=== PATIENT | female | born 2000 | race Caucasian/White ===

== ENCOUNTER → 2018-06-17 | Outpatient (REF) | payer BC ==
[2018-06-17 19:49] LABS: CHLAMYDIA DNA AMPLIFICATION NEGATIVE (NEGATIVE); GC DNA AMPLIFICATION NEGATIVE (NEGATIVE)
== END ==
LOC: M LAB REF 17:16
PROVIDERS: ATTEND Obstetrics & Gynecology
DX: Z11.3 Encounter for screening for infections with a predominantly sexual mode of transmission (principal)

== ENCOUNTER 2021-10-16 13:33 | Emergency (ER) | payer BC ==
[~2021-10-16] VITALS: Ht 170.2 cm; Wt 97.7 kg
[2021-10-16] MEDS ORDERED: OSEL75CA2 (13:48)
[2021-10-16] MEDS ORDERED: NS 1,000 ML IV ONE (14:35)
[2021-10-16] MEDS ORDERED: ONDANSETRON 4MG/2ML VIAL IV ONE (14:35)
[2021-10-16 15:02] LABS: BASO % 0.6 % (0.0-1.0); EOS % 0.6 % (0.0-3.0); HEMATOCRIT 36.8 % (36.0-47.0); HEMOGLOBIN 12.7 g/dl (12.0-15.5); LYMPH # 1.5 10^3/uL (1.5-5.0); MEAN CORPUSCULAR HEMOGLOBIN 28.5 pg (27.0-33.0); MEAN CORPUSCULAR HGB CONC 34.5 g/dl (32.0-36.5); MEAN CORPUSCULAR VOLUME 82.7 fl (80.0-96.0); MONO # 0.5 10^3/uL (0.0-0.8); NEUTROPHILS # 2.9 10^3/uL (1.5-8.5); NEUTROPHILS % 58.6 % (36.0-66.0); PLATELET COUNT, AUTOMATED 302 10^3/uL (150-450); RED BLOOD COUNT 4.45 10^6/uL (4.00-5.40)
[2021-10-16 16:17] LABS: BLOOD UREA NITROGEN 12 MG/DL (7-18); CREATININE FOR GFR 0.66 MG/DL (0.55-1.30); GLOMERULAR FILTRATION RATE > 60.0 (>60); GLUCOSE, FASTING 101 MG/DL (70-100); POTASSIUM SERUM 3.5 MEQ/L (3.5-5.1); SODIUM LEVEL 139 MEQ/L (136-145)
[2021-10-16 16:18] LABS: ALBUMIN 3.4 GM/DL (3.2-5.2); ALT/SGPT 19 U/L (12-78); BILIRUBIN,DIRECT 0.1 MG/DL (0.0-0.2); BILIRUBIN,TOTAL 0.3 MG/DL (0.2-1.0); CALCIUM LEVEL 9.1 MG/DL (8.5-10.1); CARBON DIOXIDE LEVEL 27 MEQ/L (21-32); CHLORIDE LEVEL 106 MEQ/L (98-107); HCG, SERUM QUANTITATIVE 129789 MIU/ML; LIPASE 77 U/L (73-393); TOTAL PROTEIN 7.2 GM/DL (6.4-8.2)
[2021-10-16 16:59] VITALS: BP 130/66
[2021-10-16] MEDS ORDERED: ONDA4TAB6 PO (17:42)
== END 2021-10-16 18:43 | disposition home or self-care (01) ==
LOC: M ED 13:33
DX: O21.9 Vomiting of pregnancy, unspecified (principal); E28.2 Polycystic ovarian syndrome; Z88.1 Allergy status to other antibiotic agents; Z3A.08 8 weeks gestation of pregnancy
CPT/HCPCS: 36415; 80048; 80076; 83690; 84702; 85025; 96361; 96374; 99284; J2405

== ENCOUNTER → 2021-10-26 | Outpatient (CLI) | payer BC ==
[~2021-10-26] MED LIST: ONDA4TAB6 PO; OSEL75CA2
[2021-10-26 13:11] LABS: BASO % 0.5 % (0.0-1.0); EOS % 0.5 % (0.0-3.0); HEMATOCRIT 38.2 % (36.0-47.0); LYMPH # 1.8 10^3/uL (1.5-5.0); LYMPH % 22.7 % (24.0-44.0); MEAN CORPUSCULAR VOLUME 82.2 fl (80.0-96.0); MONO # 0.6 10^3/uL (0.0-0.8); MONO % 7.2 % (2.0-8.0); NEUTROPHILS # 5.3 10^3/uL (1.5-8.5); NEUTROPHILS % 68.6 % (36.0-66.0); PLATELET COUNT, AUTOMATED 355 10^3/uL (150-450); RED BLOOD COUNT 4.65 10^6/uL (4.00-5.40); WHITE BLOOD COUNT 7.7 10^3/uL (4.0-10.0)
[2021-10-26 14:32] LABS: HEPATITIS C VIRUS ABY INDEX 0.1 INDEX (<0.8); HIV 1&2 SCREEN CENTAUR NEGATIVE (NEGATIVE)
[2021-10-26 16:47] LABS: GC DNA AMPLIFICATION NEGATIVE (NEGATIVE)
== END ==
LOC: M PLALAB 11:08
PROVIDERS: ATTEND Obstetrics & Gynecology
DX: Z34.90 Encounter for supervision of normal pregnancy, unspecified, unspecified trimester (principal); Z3A.00 Weeks of gestation of pregnancy not specified

== ENCOUNTER → 2021-12-31 | Outpatient (CLI) | payer BC, MEDICAID | LOC: M WHC 07:06 | PROVIDERS: ATTEND Obstetrics & Gynecology | DX: Z34.82 Encounter for supervision of other normal pregnancy, second trimester (principal) ==

== ENCOUNTER → 2022-02-08 | Outpatient (CLI) | payer BC, MEDICAID | LOC: M WHC 09:30 | PROVIDERS: ATTEND Obstetrics & Gynecology | DX: Z36.2 Encounter for other antenatal screening follow-up (principal); Z3A.25 25 weeks gestation of pregnancy ==

== ENCOUNTER → 2022-02-15 | Outpatient (CLI) | payer BC, MEDICAID ==
[2022-02-15 16:03] LABS: HEMATOCRIT 35.8 % (36.0-47.0); HEMOGLOBIN 11.7 g/dl (12.0-15.5); MEAN CORPUSCULAR HEMOGLOBIN 29.1 pg (27.0-33.0); MEAN CORPUSCULAR HGB CONC 32.7 g/dl (32.0-36.5); MEAN CORPUSCULAR VOLUME 89.1 fl (80.0-96.0); PLATELET COUNT, AUTOMATED 325 10^3/uL (150-450); RED BLOOD COUNT 4.02 10^6/uL (4.00-5.40); WHITE BLOOD COUNT 10.9 10^3/uL (4.0-10.0)
[2022-02-15 16:30] LABS: ALBUMIN 2.7 GM/DL (3.2-5.2); ALT/SGPT 19 U/L (12-78); BILIRUBIN,TOTAL 0.4 MG/DL (0.2-1.0); BLOOD UREA NITROGEN 9 MG/DL (7-18); CALCIUM LEVEL 8.4 MG/DL (8.5-10.1); CARBON DIOXIDE LEVEL 25 MEQ/L (21-32); CHLORIDE LEVEL 108 MEQ/L (98-107); CREATININE FOR GFR 0.53 MG/DL (0.55-1.30); GLOMERULAR FILTRATION RATE > 60.0 (>60); GLUCOSE, FASTING 100 MG/DL (70-100); POTASSIUM SERUM 3.5 MEQ/L (3.5-5.1); SODIUM LEVEL 139 MEQ/L (136-145); TOTAL PROTEIN 6.2 GM/DL (6.4-8.2)
== END ==
LOC: M PLALAB 13:23
PROVIDERS: ATTEND Advanced Practice Midwife
DX: O99.712 Diseases of the skin and subcutaneous tissue complicating pregnancy, second trimester (principal); Z3A.00 Weeks of gestation of pregnancy not specified

== ENCOUNTER → 2022-03-07 | Outpatient (CLI) | payer BC, MEDICAID ==
[2022-03-07 13:44] LABS: HEMATOCRIT 36.1 % (36.0-47.0); MEAN CORPUSCULAR HEMOGLOBIN 29.4 pg (27.0-33.0); MEAN CORPUSCULAR HGB CONC 33.2 g/dl (32.0-36.5); MEAN CORPUSCULAR VOLUME 88.5 fl (80.0-96.0); PLATELET COUNT, AUTOMATED 313 10^3/uL (150-450); RED BLOOD COUNT 4.08 10^6/uL (4.00-5.40); WHITE BLOOD COUNT 9.9 10^3/uL (4.0-10.0)
[2022-03-07 16:05] LABS: GC DNA AMPLIFICATION NEGATIVE (NEGATIVE)
== END ==
LOC: M PLALAB 09:00
PROVIDERS: ATTEND Obstetrics & Gynecology
DX: Z36.9 Encounter for antenatal screening, unspecified (principal); Z3A.23 23 weeks gestation of pregnancy
CPT/HCPCS: 36415; 82950; 85027; 86850; 86900; 86901; 87810; 87850; J2790

== ENCOUNTER 2022-04-19 15:20 | Outpatient (CLI) | payer BC, MEDICAID ==
[~2022-04-19] VITALS: Ht 170.2 cm; Wt 102.3 kg
[2022-04-19 15:35] VITALS: BP 148/72
[2022-04-19] MEDS ORDERED: UNIS25TA3 PO (15:43)
[2022-04-19] MEDS ORDERED: ACET500P3 PO (15:43)
[2022-04-19] MEDS ORDERED: PODI1CAP PO (15:43)
[2022-04-19] MEDS ORDERED: PRENTAB9 PO (15:43)
[2022-04-19] MEDS ORDERED: HOME MED LIST COMPLETE! XX SCH (15:45)
[2022-04-19 15:52] VITALS: BP 120/68
[2022-04-19 16:30] LABS: HEMOGLOBIN 11.2 g/dl (12.0-15.5); MEAN CORPUSCULAR HEMOGLOBIN 29.2 pg (27.0-33.0); MEAN CORPUSCULAR HGB CONC 33.9 g/dl (32.0-36.5); MEAN CORPUSCULAR VOLUME 85.9 fl (80.0-96.0); PLATELET COUNT, AUTOMATED 304 10^3/uL (150-450); RED BLOOD COUNT 3.84 10^6/uL (4.00-5.40); WHITE BLOOD COUNT 11.6 10^3/uL (4.0-10.0)
[2022-04-19 16:43] VITALS: BP 136/81
[2022-04-19 16:58] LABS: ALT/SGPT 22 U/L (12-78); BILIRUBIN,TOTAL 0.4 MG/DL (0.2-1.0); CREATININE FOR GFR 0.64 MG/DL (0.55-1.30); GLOMERULAR FILTRATION RATE > 60.0 (>60); LDH LACTATE DEHYDROGENASE 163 U/L (84-246); URIC ACID 3.8 MG/DL (2.6-6.0)
[2022-04-19 17:16] LABS: TOTAL PROTEIN,RANDOM URINE 17.4 MG/DL (0.0-12.0)
== END 2022-04-19 18:34 | disposition home or self-care (01) ==
LOC: M LDO 15:20
PROVIDERS: ATTEND Obstetrics & Gynecology
DX: O13.9 Gestational [pregnancy-induced] hypertension without significant proteinuria, unspecified trimester (principal); Z3A.00 Weeks of gestation of pregnancy not specified
CPT/HCPCS: 36415; 59025; 76816; 76819; 76820; 82247; 82565; 82570; 83615; 84156; 84450; 84460; 84550; 85027; G0463

== ENCOUNTER → 2022-04-25 | Outpatient (REF) | payer BC, MEDICAID ==
[~2022-04-25] MED LIST changes: +ACET500P3 PO; +PODI1CAP PO; +PRENTAB9 PO; +UNIS25TA3 PO
== END ==
LOC: M SFHCWAGY 13:17
PROVIDERS: ATTEND Obstetrics & Gynecology
DX: Z34.93 Encounter for supervision of normal pregnancy, unspecified, third trimester (principal)

== ENCOUNTER → 2022-08-07 | Outpatient (CLI) | payer BC, MEDICAID ==
[~2022-08-07] MED LIST changes: +ACET-683 PO; +IBUP80TA PO
== END ==
LOC: M WHC 11:34
PROVIDERS: ATTEND Obstetrics & Gynecology
DX: D27.1 Benign neoplasm of left ovary (principal)

== ENCOUNTER → 2022-09-09 | Outpatient (REF) | payer BC, MEDICAID ==
[2022-09-10 14:30] LABS: GC DNA AMPLIFICATION NEGATIVE (NEGATIVE)
== END ==
LOC: M SFHCWAGY 10:12
PROVIDERS: ATTEND Obstetrics & Gynecology
DX: Z12.4 Encounter for screening for malignant neoplasm of cervix (principal); Z11.3 Encounter for screening for infections with a predominantly sexual mode of transmission
CPT/HCPCS: 87661; 87810; 87850; G0123

== ENCOUNTER → 2022-11-08 | Outpatient (CLI) | payer BC, MEDICAID | LOC: M WHC 13:55 | PROVIDERS: ATTEND Obstetrics & Gynecology | DX: Z01.818 Encounter for other preprocedural examination (principal); N83.209 Unspecified ovarian cyst, unspecified side ==

== ENCOUNTER 2022-11-20 12:38 | Day surgery (SDC) | payer BC, MEDICAID ==
[~2022-11-20] VITALS: Ht 172.7 cm; Wt 86.8 kg
[~2022-11-20 12:38] MED LIST changes: +LR 1,000 ML IV SCH
[2022-11-20] MEDS ORDERED: LR 1,000 ML IV SCH ×2 (13:05→20:00)
[2022-11-20 13:48] LABS: HEMOGLOBIN 13.7 g/dl (12.0-15.5); MEAN CORPUSCULAR HEMOGLOBIN 28.3 pg (27.0-33.0); MEAN CORPUSCULAR HGB CONC 33.4 g/dl (32.0-36.5); MEAN CORPUSCULAR VOLUME 84.7 fl (80.0-96.0); PLATELET COUNT, AUTOMATED 360 10^3/uL (150-450); RED BLOOD COUNT 4.84 10^6/uL (4.00-5.40); WHITE BLOOD COUNT 7.6 10^3/uL (4.0-10.0)
[2022-11-20] MEDS ORDERED: MIDAZOLAM INJ 2MG/2ML VIAL As Ordered ONE (14:45)
[2022-11-20] MEDS ORDERED: ROCURONIUM BROMIDE 50MG/5ML VIAL As Ordered ONE ×2 (14:45→17:17)
[2022-11-20] MEDS ORDERED: LIDOCAINE 2% 100MG/5ML SDV (FOR ANES.) As Ordered ONE (14:45)
[2022-11-20] MEDS ORDERED: propofoL 200 MG/20 ML VIAL As Ordered ONE (14:45)
[2022-11-20] MEDS ORDERED: fentaNYL 100 MCG/2 ML INJECTION As Ordered ONE ×3 (14:45→18:24)
[2022-11-20] MEDS ORDERED: ACETAMINOPHEN TAB 650MG DOSE (2X325MG) PO ONE ×2 (14:55→15:05)
[2022-11-20] MEDS ORDERED: PERC5TAB12 PO (15:41)
[2022-11-20] MEDS ORDERED: COLA100C5 PO (15:43)
[2022-11-20] MEDS ORDERED: IBUP80TA PO (15:43)
[2022-11-20] MEDS ORDERED: ONDA4TAB6 PO (15:44)
[2022-11-20] MEDS ORDERED: METHYLENE BLUE 0.5% (5MG/ML) 10 ML AMP (PROVAYBLUE) As Ordered ONE (15:59)
[2022-11-20] MEDS ORDERED: BUPIVACAINE HCL 0.25% 30ML VIAL As Ordered ONE (15:59)
[2022-11-20] MEDS ORDERED: SUGAMMADEX SODIUM 500 MG/5 ML VIAL (BRIDION) As Ordered ONE (16:56)
[2022-11-20] MEDS ORDERED: ONDANSETRON 4MG 2ML VIAL As Ordered ONE (16:57)
[2022-11-20] MEDS ORDERED: KETOROLAC 60MG 2ML VIAL As Ordered ONE (16:57)
[2022-11-20] MEDS ORDERED: METOCLOPRAMIDE INJ 10MG/2ML VIAL As Ordered ONE (16:57)
[2022-11-20] MEDS ORDERED: ceFAZolin 2 GM/D5W 50 ML IV BAG As Ordered ONE (18:10)
[2022-11-20] MEDS ORDERED: ONDANSETRON 4MG 2ML VIAL IV PRN (20:00)
[2022-11-20] MEDS ORDERED: fentaNYL 100 MCG/2 ML INJECTION IV PRN (20:00)
[2022-11-20] MEDS ORDERED: oxyCODONE 5MG TAB PO PRN (20:00)
[2022-11-20] MEDS ORDERED: HYDROMORPHONE HCL 0.5 MG/ 0.5 ML SYRINGE IV PRN (20:00)
[2022-11-20] MEDS ORDERED: SILVER NITRATE APPLICATOR (1 = QTY 10) As Ordered ONE (20:05)
[2022-11-20] MEDS ORDERED: METHYLERGONOVINE MALEATE 0.2MG/ML 1ML VIAL As Ordered ONE (20:07)
[2022-11-20 22:20] VITALS: BP 129/65
== END 2022-11-20 22:25 | disposition home or self-care (01) ==
LOC: M SDC 12:38
PROVIDERS: ATTEND Obstetrics & Gynecology
DX: N83.292 Other ovarian cyst, left side (principal); D27.1 Benign neoplasm of left ovary; Z88.1 Allergy status to other antibiotic agents
CPT/HCPCS: 36415; 58661; 58662; 81025; 85027; 86850; 86900; 86901; 88305; J0690; J1100; J1885; J2210; J2250; J2405; J2765; J3010; Q9968; S0020

== ENCOUNTER → 2023-10-20 | Outpatient (CLI) | payer BC, MEDICAID ==
[~2023-10-20] MED LIST changes: +COLA100C5 PO; -LR 1,000 ML IV SCH; +PERC5TAB12 PO
== END ==
LOC: M WHC 10:47
PROVIDERS: ATTEND Nurse Practitioner Family
DX: N83.291 Other ovarian cyst, right side (principal)

== ENCOUNTER → 2023-11-06 | Outpatient (CLI) | payer BC, MEDICAID | LOC: M PLALAB 11:05 | PROVIDERS: ATTEND Obstetrics & Gynecology | DX: Z32.01 Encounter for pregnancy test, result positive (principal) ==

== ENCOUNTER → 2023-11-08 | Outpatient (CLI) | payer BC, MEDICAID | LOC: M LAB 11:31 | PROVIDERS: ATTEND Obstetrics & Gynecology | DX: Z32.01 Encounter for pregnancy test, result positive (principal) ==

== ENCOUNTER → 2023-12-15 | Outpatient (CLI) | payer BC, MEDICAID ==
[~2023-12-15] MED LIST changes: +ONDA-282 PO; -ONDA4TAB6 PO
[2023-12-15 12:44] LABS: HEMATOCRIT 35.7 % (36.0-47.0); HEMOGLOBIN 12.2 g/dl (12.0-15.5); MEAN CORPUSCULAR HEMOGLOBIN 29.3 pg (27.0-33.0); MEAN CORPUSCULAR HGB CONC 34.2 g/dl (32.0-36.5); MEAN CORPUSCULAR VOLUME 85.6 fl (80.0-96.0); PLATELET COUNT, AUTOMATED 287 10^3/uL (150-450); RED BLOOD COUNT 4.17 10^6/uL (4.00-5.40); WHITE BLOOD COUNT 5.8 10^3/uL (4.0-10.0)
[2023-12-15 13:49] LABS: HIV 1&2 SCREEN NEGATIVE (NEGATIVE)
[2023-12-15 13:58] LABS: HEPATITIS C VIRUS ABY INDEX < 0.02 INDEX (<0.8)
[2023-12-15 14:07] LABS: GC DNA AMPLIFICATION NEGATIVE (NEGATIVE)
== END ==
LOC: M PLALAB 11:15
PROVIDERS: ATTEND Obstetrics & Gynecology
DX: Z34.91 Encounter for supervision of normal pregnancy, unspecified, first trimester (principal); Z3A.00 Weeks of gestation of pregnancy not specified

== ENCOUNTER → 2024-02-27 | Outpatient (CLI) | payer BC, MEDICAID | LOC: M WHC 08:40 | PROVIDERS: ATTEND Obstetrics & Gynecology | DX: O32.1XX0 Maternal care for breech presentation, not applicable or unspecified (principal); Z3A.20 20 weeks gestation of pregnancy ==

== ENCOUNTER → 2024-04-06 | Outpatient (CLI) | payer BC, MEDICAID ==
[2024-04-06 15:26] LABS: MEAN CORPUSCULAR HEMOGLOBIN 29.5 pg (27.0-33.0); MEAN CORPUSCULAR HGB CONC 33.3 g/dl (32.0-36.5); MEAN CORPUSCULAR VOLUME 88.5 fl (80.0-96.0); PLATELET COUNT, AUTOMATED 304 10^3/uL (150-450); RED BLOOD COUNT 4.07 10^6/uL (4.00-5.40); WHITE BLOOD COUNT 9.3 10^3/uL (4.0-10.0)
[2024-04-06 15:31] LABS: GLUCOSE CHALLENGE TEST 1 HOUR 99 MG/DL (LESS THAN 140)
[2024-04-06 16:05] LABS: HIV 1&2 SCREEN NEGATIVE (NEGATIVE)
[2024-04-06 16:13] LABS: HEPATITIS C VIRUS ABY INDEX 0.03 INDEX (<0.8)
[2024-04-06 17:16] LABS: GC DNA AMPLIFICATION NEGATIVE (NEGATIVE)
== END ==
LOC: M PLALAB 08:41
PROVIDERS: ATTEND Obstetrics & Gynecology
DX: Z34.92 Encounter for supervision of normal pregnancy, unspecified, second trimester (principal); Z3A.21 21 weeks gestation of pregnancy

== ENCOUNTER → 2024-06-14 | Outpatient (REF) | payer BC, MEDICAID | LOC: M PLALAB 08:21 | PROVIDERS: ATTEND Obstetrics & Gynecology | DX: Z36.85 Encounter for antenatal screening for Streptococcus B (principal); Z3A.36 36 weeks gestation of pregnancy ==

== ENCOUNTER 2024-07-03 16:15 | Inpatient (IN) | payer BC, MEDICAID ==
[~2024-07-03] VITALS: Ht 170.2 cm; Wt 96.7 kg
[2024-07-03] VITALS (9 sets, daily range): BP systolic 127–148; BP diastolic 71–88; O2SAT 99
[2024-07-03] MEDS ORDERED: HOME MED LIST COMPLETE! XX SCH (16:35)
[2024-07-03 21:33] LABS: HEMATOCRIT 37.6 % (36.0-47.0); HEMOGLOBIN 12.5 g/dl (12.0-15.5); MEAN CORPUSCULAR HEMOGLOBIN 28.6 pg (27.0-33.0); MEAN CORPUSCULAR HGB CONC 33.2 g/dl (32.0-36.5); PLATELET COUNT, AUTOMATED 272 10^3/uL (150-450); RED BLOOD COUNT 4.37 10^6/uL (4.00-5.40); WHITE BLOOD COUNT 14.2 10^3/uL (4.0-10.0)
[2024-07-03] MEDS ORDERED: OXYTOCIN DRIP 30 UNITS in IV 1 EA IV PRN (21:40)
[2024-07-03] MEDS ORDERED: LIDOCAINE 1% MDV 20ML VIAL INFIL PRN (21:40)
[2024-07-03] MEDS ORDERED: CARBOPROST TROMETHAMINE 250 MCG/ML AMP IM PRN (21:40)
[2024-07-03] MEDS ORDERED: METHYLERGONOVINE MALEATE 0.2MG/ML 1ML VIAL IM PRN (21:40)
[2024-07-03] MEDS ORDERED: TRANEXAMIC ACID INJection 1,000 MG in NS 100 ML IV PRN (21:40)
[2024-07-03] MEDS: LR 1,000 ML IV SCH (21:57)
[2024-07-03] MEDS: OXYTOCIN DRIP 30 UNITS in IV 1 EA IV SCH (21:57)
[2024-07-03 23:38] LABS: HEPATITIS C VIRUS ABY INDEX 0.03 INDEX (<0.8)
[2024-07-04] VITALS (10 sets, daily range): BP systolic 122–137; BP diastolic 67–85; TEMP 98.8; O2SAT 96–99
[2024-07-04] MEDS: ONDANSETRON 4MG 2ML VIAL IV ONE (00:13)
[2024-07-04] MEDS ORDERED: METHYLERGONOVINE MALEATE 0.2 MG TAB PO PRN (09:50)
[2024-07-04] MEDS ORDERED: MOM 30ML SUSPENSION UDC PO PRN (09:50)
[2024-07-04] MEDS ORDERED: CALCIUM CARBONATE 500 MG CHEW U/D PO PRN (09:50)
[2024-07-04] MEDS ORDERED: ANUSOL HC CREAM 30GM TOP PRN (09:50)
[2024-07-04] MEDS ORDERED: DOCUSATE SODIUM 100MG CAPSULE PO PRN (09:50)
[2024-07-04] MEDS ORDERED: IBUPROFEN 800 MG TAB PO PRN (09:50)
[2024-07-04] MEDS ORDERED: DIBUCAINE 1% OINTMENT 30GM TOP PRN (09:50)
[2024-07-04] MEDS ORDERED: ACETAMINOPHEN 500 MG TAB PO PRN (09:50)
[2024-07-04] MEDS ORDERED: ACETAMINOPHEN 325 MG TAB PO PRN (09:50)
[2024-07-04] MEDS: IBUPROFEN 600MG TAB PO PRN (12:27)
[2024-07-04] MEDS: RHOGAM 300MCG (1500IU) INJ IM SCH (16:14)
[2024-07-05 06:00] VITALS: BP 117/67; O2SAT 98
[2024-07-05] MEDS: PRENATAL VITAMINS CHEWABLE TABLET PO SCH (07:51)
[2024-07-06] MEDS ORDERED: MEASLES,MUMPS,RUBELLA VACCINE INJ (MMR-II) SC.IMMUN ONE (09:00)
== END 2024-07-05 13:25 | disposition home or self-care (01) | DRG 560 ==
LOC: M LDO 16:15 → M LDI 21:03 → M OBS 07-04 02:30
PROVIDERS: ADMIT Obstetrics & Gynecology; ATTEND Obstetrics & Gynecology
PROC: 10E0XZZ Delivery of Products of Conception, External Approach (ICD-10-PCS; principal; 2024-07-04)
DX: O80 Encounter for full-term uncomplicated delivery (principal); Z37.0 Single live birth; Z3A.39 39 weeks gestation of pregnancy

== ENCOUNTER → 2025-04-26 | Outpatient (RCR) | LOC: M EMPSKH 03-30 13:58 | PROVIDERS: ATTEND Family Medicine | DX: Z20.828 Contact with and (suspected) exposure to other viral communicable diseases (principal) ==